=== PATIENT | male | born 1955 | race Hispanic/Latino ===

== ENCOUNTER 2017-08-07 12:21 | Outpatient (CLI) | payer BC ==
--- NOTE | 2017-08-07 13:11 | XRay Report ---
XRAY CERVICAL SPINE THREE VIEWS: 08/07/17 12:21:00 CLINICAL: Neck pain. FINDINGS: Exaggerated cervical lordosis. Normal vertebral body height, alignment and disc spaces. Small anterior osteophytes at C5-6 and C6-7. Normal odontoid and C1. Moderate multilevel facet joint sclerosis. No fracture. Normal airway and soft tissues. IMPRESSION: Moderate degenerative change with multilevel facet joint arthropathy.
== END 2017-08-07 12:22 | disposition home or self-care (01) ==
LOC: SPVIMAG 12:21
PROVIDERS: ATTEND Internal Medicine
DX: M47.892 Other spondylosis, cervical region (principal); M12.88 Other specific arthropathies, not elsewhere classified, other specified site
CPT/HCPCS: 72040